=== PATIENT | male | born 1950 | race Two or more races ===

== ENCOUNTER 2018-11-06 10:47 | Emergency (ER) | payer BC ==
[2018-11-06] MEDS ORDERED: NS 0.9% 1000 ML** 1,000 ML IV ONE (11:02)
--- NOTE | 2018-11-06 11:02 | ED ---
Neurological HPI - HPI Summary HPI Summary: A 67 y/o M presents to ED c/o LUE weakness onset 0900. Patient woke up at 0500 at baseline. Associated sx: L fingers and thumb numbness; mild occipital PHOENIX; neck stiffness. Denies CP, vision changes. He says he noticed something wrong with his L thumb when he texts. He did have his blood drawn earlier today. He recently flew back to [place] from [place] yesterday, it was a 14 hour flight. He took aspirin VOICE OVER ARTIST. He notes having an MRI one month ago due to an ongoing PHOENIX for two weeks. PCP is Dr. Mercado. - History of Current Complaint Chief Complaint: EDNeurologicalDeficit Stated Complaint: LEFT ARM/HAND NUMBNESS PER PT Hx Obtained From: Patient Onset/Duration: Sudden Onset, Started hours ago, Still Present Timing: Constant Onset Severity: Moderate Current Severity: Moderate Number of Seizures: 0 Pain Intensity: 0 Pain Scale Used: 0-10 Numeric Character: Weak - LUE, Numbness/Tingling - L fingers, thumb Associated Signs and Symptoms: Positive: Headache - mild, Weakness - LUE, Numbness - L fingers/thumb, Neck Pain/Stiffness. Negative: Visual Changes, Chest Pain - Allergy/Home Medications Allergies/Adverse Reactions: Allergies Allergy/AdvReac Type Severity Reaction Status Date / Time Penicillins Allergy Unknown Unknown Verified 11/06/18 11:29 Reaction Details Home Medications: Home Medications Aspirin [Aspirin EC] 81 mg PO DAILY 11/06/18 [History Confirmed 11/06/18] PMH/Surg Hx/FS Hx/Imm Hx Previously Healthy: No History: Reports: Other Problems/Disorders - PROSTATECTOMY 09/2015 Sensory History: Denies: Hx Contacts or Glasses, Hx Hearing Aid Opthamlomology History: Denies: Hx Contacts or Glasses - Cancer History Cancer Type, Location and Year: PROSTATE CA - Surgical History Surgery Procedure, Year, and Place: 09/2015 PROSTATECTOMY, [place] Hx Anesthesia Reactions: No Infectious Disease History: No Infectious Disease History: Reports: Traveled Outside the [place] in Last 30 Days - Family History Family History: neg: anaesthesia reaction - Social History Occupation: Unemployed - OTHER Lives: With Family Alcohol Use: None Hx Substance Use: No Substance Use Type: Reports: None Hx Tobacco Use: Yes Smoking Status (MU): Former Smoker Type: Cigarettes Have You Smoked in the Last Year: No Review of Systems Eyes: Negative Negative: Chest Pain Musculoskeletal: Other - pos: neck stiffness Positive: Headache - mild, Weakness - LUE, Numbness - L fingers/thumb All Other Systems Reviewed And Are Negative: Yes Physical Exam - Summary Physical Exam Summary: Appearance: The patient is well-nourished in no acute distress and in no acute pain. Skin: The skin is warm and dry and skin color reflects adequate perfusion. HEENT: The head is normocephalic and atraumatic. The pupils are equal and reactive. The conjunctivae are clear and without drainage. Nares are patent and without drainage. Mouth reveals moist mucous membranes and the throat is without erythema and exudate. The external ears are intact. The ear canals are patent and without drainage. The tympanic membranes are intact. Neck: the neck is supple with full range of motion and non-tender. There are no carotid bruits. There is no neck vein distension. Respiratory: Chest is non-tender. Lungs are clear to auscultation and breath sounds are symmetrical and equal. Cardiovascular: Heart is regular rate and rhythm. There is no murmur or rub auscultated. There is no peripheral edema and pulses are symmetrical and equal. Abdomen: The abdomen is soft and non-tender. There are normal bowel sounds heard in all four quadrants and there is no organomegaly palpated. Musculoskeletal: There is no back tenderness noted. Extremities are non-tender with full range of motion. There is good capillary refill. There is no peripheral edema or calf tenderness elicited. Neurological: Patient is alert and oriented to person, place and time. The patient has symmetrical motor strength in all four extremities. Cranial nerves are grossly intact. Deep tendon reflexes are symmetrical and equal in all four extremities. Psychiatric: The patient has an appropriate affect and does not exhibit any anxiety or depression. Triage Information Reviewed: Yes Vital Signs On Initial Exam: Initial Vitals Temp Pulse Resp BP Pulse Ox 97.4 F 71 20 158/123 98 11/06/18 10:50 11/06/18 10:50 11/06/18 10:50 11/06/18 10:50 11/06/18 10:50 Vital Signs Reviewed: Yes - [place] Coma Scale Best Eye Response: 4 - Spontaneous Best Motor Response: 6 - Obeys Commands Best Verbal Response: 5 - Oriented Coma Scale Total: 15 Diagnostics - Vital Signs Vital Signs Temp Pulse Resp BP Pulse Ox 06/17/19 10:50 97.4 F 71 20 158/123 98 - Laboratory Result Diagrams: 11/06/18 11:18 11/06/18 11:18 Lab Statement: Any lab studies that have been ordered have been reviewed, and results considered in the medical decision making process. - Radiology CXR Radiology Interpretation Completed By: Radiologist Summary of Radiographic Findings: IMPRESSION: #. No evidence for acute intrathoracic disease. ED provider has reviewed this report. - CT BRAIN CT CT Interpretation Completed By: Radiologist Summary of CT Findings: IMPRESSION: #. No evidence for intracranial hemorrhage or CT stigmata of ischemic stroke. Negative exam. ED provider has reviewed this report. - EKG 1109 Cardiac Rate: Bradycardia - 53 bpm EKG Rhythm: Sinus Bradycardia Summary of EKG Findings: Vertical axis. No STEMI. NIH Scale - NIH Scale Level of Consciousness: Alert/Keenly Responsive Ask Patient the Month and His/Her Age: Both Correct Ask Pt to Open/Close Eyes and Youth Services Librarian/Release Non-Paretic Hand: Both Correctly Best Gaze (Only Horizontal Eye Movement): Normal Visual Field Testing: No Visual Loss Facial Paresis-Pt to Smile & Close Eyes or Grimace Symmetry: Normal/Symmetrical Motor Function - Right Arm: No Drift-Holds 10 Seconds Motor Function - Left Arm: No Drift-Holds 10 Seconds Motor Function - Right Leg: No Drift-Holds 10 Seconds Motor Function - Left Leg: No Drift-Holds 10 Seconds Limb Ataxia-Must be out of Proportion to Weakness Present: Absent Sensory (Use Pinprick to Test Arms/Legs/Trunk/Face): Normal Best Language (Describe Picture, Name Items): No Aphasia Dysarthria (Read Several Words): Normal Extinction and Inattention: No Abnormality Total Score: 0 Re-Evaluation - Re-Evaluation 1 Re-Evaluation Time: 13:57 Change: Improved Comment: Discussing results with patient and plans for discharge. He is agreeable to this. Course/Dx - Course Course Of Treatment: Mr. Costello presented with left arm numbness and weakness. His initial NIH stroke scale was 0 - 1. My initial impression was that this is likely a radicular however I cannot rule out a CVA and a code alfonso was called. Dr. Olivo came and evaluated the patient and agreed that it was likely coming from his neck. At that point the patient was improving rapidly and he recommended discharge if labs were within normal limits which they were. - Diagnoses Provider Diagnoses: Cervical radiculopathy During the Visit The Following Alert/Code Occurred: Code Shaquille - called at 10:57 - Physician Notifications Discussed Care Of Patient With: Mike Olivo - neuro Time Discussed With Above Provider: 11:11 Instructed by Provider To: MD Will See In ED - Discussing patient. Consulted again at 1150: Patient's sx are resolving, most likely nerve / musculoskeletal issue. If work-up is OK, safe for discharge. Discharge - Sign-Out/Discharge Documenting (check all that apply): Patient Departure - D/C Patient Received Moderate/Deep Sedation with Procedure: No - Discharge Plan Condition: Stable Disposition: HOME Patient Education Materials: Cervical Radiculopathy (ED) Referrals: Larry Mercado MD [Primary Care Provider] - 1 Week Additional Instructions: Please return to the ED if you experience new or worsening symptoms. Follow up with your primary care provider this week. - Billing Disposition and Condition Condition: STABLE Disposition: Home - Attestation Statements Document Initiated by Lvibe: Yes Documenting Scribe: Charu Irby Provider For Whom Lvibe is Documenting (Include Credential): Dr. Janes Chen MD Scribe Attestation: I, lv Soriaibed for Dr. Janes Chen MD on 11/06/18 at 1504. Scribe Documentation Reviewed: Yes Provider Attestation: The documentation as recorded by the Charu lacey accurately reflects the service I personally performed and the decisions made by me, Dr. Janes Chen MD Status of Scribe Document: Viewed
[2018-11-06 11:28] LABS: ABS Eosinophils 0.2 10^3/ul (0-0.6); ABS Lymphocytes 2.1 10^3/ul (1.0-4.8); ABS Monocytes 0.5 10^3/ul (0-0.8); Eosinophil % 4.2 %; Hematocrit 40 % (42-52); Hemoglobin 13.5 g/dL (14.0-18.0); Lymphocyte % 35.5 %; Mean Corpuscular HGB Conc 34 g/dL (31-36); Mean Corpuscular Hemoglobin 29 pg (27-31); Mean Corpuscular Volume 85 fL (80-94); Mean Platelet Volume 8.7 fL (7.4-10.4); Nucleated Red Blood Cells % 0.1; Platelet Count 217 10^3/uL (150-450); Red Blood Count 4.73 10^6 /uL (4.18-5.48); Red Cell Distribution Width 13 % (10-15); White Blood Count 5.8 10^3/uL (3.5-10.8)
[2018-11-06 11:41] LABS: Activated Partial Thrombo Time 36.5 seconds (26.0-38.0); INR 0.93 (0.82-1.09)
[2018-11-06 11:43] LABS: Albumin 4.1 g/dL (3.2-5.2); Albumin/Globulin Ratio 1.5 (1-3); BUN/Creatinine Ratio 14.8 (8-20); Calcium 9.2 mg/dL (8.6-10.3); EGFR Non-African American 68.6 (>60); Globulin 2.8 g/dL (2-4); HDL Cholesterol 26.1 mg/dL; Potassium 3.8 mmol/L (3.5-5.0); Total Bilirubin 0.4 mg/dL (0.2-1.0); Total Protein 6.9 g/dL (6.4-8.9)
--- NOTE | 2018-11-06 13:27 | CONS ---
NEUROLOGY CONSULTATION REPORT: DATE OF CONSULT: 11/06/18 LOCATION: He is in the emergency room, bed 4. REFERRING PROVIDER: Dr. Chen. CHIEF COMPLAINT: Left hand numbness. HISTORY OF PRESENT ILLNESS: Shania Costello is a 67-year-old right-handed man who woke up this morning at 5 o'clock and felt reasonably well. He had just returned from [facility] with a 14-hour plane ride and a drive up from [facility] to [place]. He went to have some blood work done as it was ordered routinely to check his PSA. He said there were no problems with the stick and there was no pain with the phlebotomy. He went home and he went to use his cell phone and he realized that his left thumb did not move properly. He describes it as "numb." There was no pain, tingling, but just a decreased mobility of the thumb. He felt that maybe there was some weakness in his forearm as well. He took 4 baby aspirin and presented to the emergency room. A blair alfonso was called. He notes as I evaluated him several times today in the emergency room that his mobility is much improved. It still feels a little weak. When I examined him first in the emergency room, he had some thumb extensor weakness and a little bit of left wrist extensor weakness. There was also some finger extensor weakness. There was decreased pin discrimination in the left anatomical snuffbox. There was good strength proximally including triceps, biceps, and brachioradialis. He does not notice any numbness of his face, other arm, or either leg. He had no difficulty ambulating. He has a little bit of stiffness in his neck, but no pain. He has not noticed any change in his vision and no headache. There is no prior history of cerebrovascular disease. There is no history of epilepsy. PAST MEDICAL HISTORY: Notable for prostate cancer. He had a prostatectomy in September 2015. He had a lesion removed from his bladder in 2016 as well. There is no history of hypertension or diabetes. He does not routinely take aspirin. MEDICATIONS: His only regular medication is a multivitamin. ALLERGIES: He is allergic to PENICILLIN. FAMILY HISTORY: Noncontributory. SOCIAL HISTORY: He is an ex-smoker. He drinks alcohol infrequently. REVIEW OF SYSTEMS: Negative for cardiac, pulmonary, other renal, GI, psychiatric or hematological disorders. He has not had any recent fevers. He is somewhat jet lagged and more tired than usual. PHYSICAL EXAMINATION: He is well nourished and well hydrated. Temperature 97.4 , blood pressure was initially recorded at 158/23, but subsequently 146/90. Heart rate is in the 60s and regular. Respiratory rate is 20 and oxygen saturation is 98% on room air. Heart tones are normal. Carotid pulses were intact and there were no cervical bruits. Oral mucosa is moist. Distal pulses are present. Lungs are clear bilaterally. Neurological Exam: Pupils react equally from 4 down to 2.5 mm symmetrically. Funduscopic exam is normal bilaterally. Visual azcarias are full to confrontation. Facial musculature and facial sensation are intact and symmetric to light touch and pin. Palate and tongue appear normal, palate rises symmetrically. There is no dysarthria. Neck range of motion is normal. Motor exam reveals normal muscle tone and strength proximally and distally in the right arm and both legs. He has normal strength in the left arm, other than some left thumb extensor weakness, which earlier in the evaluation also included some wrist extensor and finger extensor weakness, but that appears to have resolved. There is still diminished pin discrimination in the left anatomical snuffbox. The rest of the sensory exam is intact in all limbs. Reflexes are symmetric in the limbs as well and plantar responses are flexor bilaterally. Reflexes are intact at brachioradialis, biceps, and triceps in the upper extremities symmetrically. Lnqctr-cz-[id number] maneuver is normal bilaterally. Guqx-qy-qume maneuver is normal bilaterally. There is no rest or action tremor. He is alert and oriented and an excellent detailed historian. Memory is intact and language is fluent. He has adequate attention, concentration, and fund of knowledge. DIAGNOSTIC STUDIES/LAB DATA: Laboratory data includes a CT of the brain interpreted as normal. I reviewed the images and I agree. Chest x-ray is interpreted as normal as well. A 12-lead EKG reveals some sinus bradycardia and right axis deviation. There is minimal ST elevation in the anterior leads. Additional laboratory data is notable for normal CBC, other than a borderline low hemoglobin at 13.5. INR and PTT are within normal limits. Chemistry profile is normal, other than a borderline glucose of 115. Cholesterol is 155 and LDL 97. IMPRESSION: Impression is that of a partial left radial nerve palsy. He had prolonged travel over several days and he may not have noticed weakness in his hand when he first woke up this morning. Alternatively, he may have had some tourniquet paralysis from the blood draw. His symptoms are improving and are restricted to a radial nerve distribution. I do not see evidence of a cerebrovascular event. I think he can probably be discharged home as long as his symptoms continue to resolve. If he develops new or worsened symptoms, then he should be reevaluated. I discussed my impression with Dr. Moreno. [id number]/[facility] #: [id number] [facility] CENTERTeodora
[2018-11-06 14:08] VITALS: BP 150/89
== END 2018-11-06 14:07 | disposition home or self-care (01) ==
LOC: ED 10:47
DX: M54.12 Radiculopathy, cervical region (principal); Z79.82 Long term (current) use of aspirin; Z87.891 Personal history of nicotine dependence
CPT/HCPCS: 36415; 70450; 71045; 80053; 80061; 83605; 84484; 85025; 85610; 85730; 86850; 86900; 86901; 93005; 96360; 96361; 99284

== ENCOUNTER 2018-12-03 14:27 | Emergency (ER) | payer BC ==
--- OUTSIDE RECORDS SUMMARY | 2018-12-03 14:37 | XMS REPORT | Continuity of Care Document ---
:1950 External Reference #:[id number] Author Name Jeanette Dorsey O.D. Address [address] [facility] [place] [address] Care Team Providers Name Role Phone Larry Mercado M.D. 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 20mg Capsules Sildenafil Citrate Jean Greenfield M.D. 100mg Tablets Multi Vitamin Daily Unknown Tablets History Medications Prednisolone Acetate 1 drop left 1units H20.012 Jeanette Dorsey, 2016 - 1% eye 4 times O.D. 07/19/2016 Suspension daily Procedures Date Code Description Status 06/25/2016 50733 New Patient Intermediate Exam Completed Encounters Type Date Location Provider Dx Diagnosis Office Visit 07/06/2016 Jeanette Hale, H20.012 Primary 8:15a , kristen Fylnn iridocyclitis, left eye Office Visit 06/29/2016 Jeanette Hale, H20.012 Primary 8:15a kristen HUGHES O.D. iridocyclitis, left eye Office Visit 06/26/2016 Genesis Hale, H20.012 Primary 10:00a kristen HUGHES O.D. iridocyclitis, left eye Plan of Treatment 11/16/2018 - Jeanette Dorsey O.D.H43.811 Vitreous degeneration, right eyeComments:Smoking can increase the risk of developing or worsening any eye related disease, as well as affect your overall health. If you are a smoker, we strongly recommend that you quit.If you are not a smoker, we strongly recommend that you do not start. 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 If you have any changes in your floaters or flashing lights, please contact this office.Follow up:4 WEEKS DFE You can expect to have your eyes dilated at your next visit. If Dr. Dorsey orders anyadditional testing, it may require extra time. We recommend that you bring sunglasses, as dilation drops often make you light sensitive until they wear off. We always recommend you bring someone to drive you home if you are uncomfortable driving with your eyes dilated. If you have any questions beforeyour next visit, feel free to call our office at .
[2018-12-03] MEDS ORDERED: Ketorolac INJ* 30 MG/ML 1 ML VIAL IM ONE (17:33)
[2018-12-03] MEDS ORDERED: tiZANidine TAB* 2 MG PO ONE (17:35)
--- NOTE | 2018-12-03 18:11 | ED ---
Back Pain - HPI Summary HPI Summary: The patient is a 67 y/o M presenting to [facility] accompanied by with a chief complaint of sudden onset mid to low back pain starting on 11/30/18. He reports that there was not any trauma to the back, but he started experiencing the pain while walking outside. During the first day of the pain, he attempted to use Soma pills; the second and third day of the pain he had been using Icy-Hot packs , as well as Lidocaine patches on the area of pain with last one placed at 0900 today 12/03. The pain is the worst it's been today with a current severity of 8/ 10. There is numbness at the site of the pain, but the numbness does not radiate. He denies lower extremity pain, abd pain, incontinence of urine or stool, weakness in either lower extremity, or fever. The pain is aggravated by position and lifting the right leg when lying down (not left leg). PCP is Dr. Mercado, who is not aware of the patient's back pain. Hx of prostatectomy in 2016 secondary to prostate CA (no recent changes as of three weeks ago, has seen Dr. Webb with surgery in [place]). No hx of herniated discs or back problems. Former cigarette smoker, no EtOH, no substance use. Vital signs in room: HR 66 bpm, BP 113/66, O2 97%. Home Medications Medication Instructions Recorded Confirmed Type Multivitamin [Multivitamins] 1 cap PO DAILY 02/19/16 11/06/18 History Aspirin [Aspirin EC] 81 mg PO DAILY 11/06/18 11/06/18 History HYDROcodone/ACETAMIN 5-325 MG* 2 tab PO Q6H PRN #20 tab MDD 8 12/03/18 Rx [[place] 5-325 TAB*] Lidocaine PATCH 5%* [Lidoderm 5% 2 patch TRANSDERM DAILY #30 patch 12/03/18 Rx Patch*] - History of Current Complaint Chief Complaint: EDBackInjuryPain Stated Complaint: "BACK PAIN PER PT" Hx Obtained From: Patient, Family/[employer] - Onset/Duration: Sudden Onset, Lasting Days - starting 11/30/18, Still Present, Worse Since - this morning Onset/Duration: Started Days Ago - three (11/30), Atraumatic, Still Present Timing: Lasting Days - three Back Pain Location: Is Discrete @ - mid to low back Severity Initially: Moderate Severity Currently: Severe Pain Intensity: 8 Pain Scale Used: 0-10 Numeric Character: Sharp Aggravating Symptom(s): Movement - especially lifting right leg Alleviating Symptom(s): Rest Associated Signs And Symptoms: Positive: Numbness - at site of back pain (doesn' t radiate), Other - NEGATIVE: leg pain or weakness. Negative: Fever, Abdominal Pain, Bladder Incontinence, Bowel Incontinence - Allergies/Home Medications Allergies/Adverse Reactions: Allergies Allergy/AdvReac Type Severity Reaction Status Date / Time Penicillins Allergy Unknown Unknown Verified 12/03/18 14:33 Reaction Details PMH/Surg Hx/FS Hx/Imm Hx Endocrine/Hematology History: Denies: Hx Diabetes Cardiovascular History: Denies: Hx Hypertension History: Reports: Other Problems/Disorders - PROSTATECTOMY 09/2015 Sensory History: Denies: Hx Contacts or Glasses, Hx Hearing Aid Opthamlomology History: Denies: Hx Contacts or Glasses - Cancer History Cancer Type, Location and Year: PROSTATE CA - Surgical History Surgery Procedure, Year, and Place: 09/2015 PROSTATECTOMY, FOLSOM Hx Anesthesia Reactions: No Infectious Disease History: No Infectious Disease History: Reports: Traveled Outside the [place] in Last 30 Days - [place] - Family History Family History: neg: anaesthesia reaction - Social History Alcohol Use: None Alcohol Amount: beer, red wine once in a while Hx Substance Use: No Substance Use Type: Reports: None Hx Tobacco Use: Yes Smoking Status (MU): Former Smoker Type: Cigarettes Have You Smoked in the Last Year: No Review of Systems Negative: Fever Positive: Other - NEGATIVE: incontinence of BM. Negative: Abdominal Pain Negative: incontinence Positive: Other - back pain in the mid to lower back; NEGATIVE: lower extremity pain. Negative: Edema Positive: Numbness - at site of back pain but not radiating. Negative: Weakness - in BLE All Other Systems Reviewed And Are Negative: Yes Physical Exam - Summary Physical Exam Summary: Appearance: Ill-appearing, moderate pain distress, well-nourished Skin: Warm, color reflects adequate perfusion, dry Head: Normal Head/Face inspection, atraumatic Eyes: Conjunctiva clear ENT: Normal inspection Neck: Supple, no nodes, no JVD Respiratory: Lungs clear, normal breath sounds, no respiratory distress Cardio: RRR, No murmur, pulses normal, brisk capillary refill Abdomen: Soft, nontender Bowel sounds: Present Musculoskeletal: Tenderness across the lumbar spine, Dorsiflexion and plantarflexion strengths intact, SLR positive on right with sensation intact bilaterally, 2+ and 1+ Patellar reflexes diminished on right, Ankle reflexes difficult to assess because patient is unable to position properly due to pain, Babinski reflexes intact bilaterally, ROM intact, no calf tenderness, no edema. Psychological: Normal Neuro: Alert, muscle tone normal, no focal deficit Triage Information Reviewed: Yes Vital Signs On Initial Exam: Initial Vitals Temp Pulse Resp BP Pulse Ox 97.6 F 64 14 131/84 96 12/03/18 14:29 12/03/18 14:29 12/03/18 14:29 12/03/18 14:29 12/03/18 14:29 Vital Signs Reviewed: Yes Diagnostics - Vital Signs Vital Signs Temp Pulse Resp BP Pulse Ox 12/03/18 17:07 68 113/66 99 12/03/18 17:00 55 98 12/03/18 16:37 55 115/65 97 12/03/18 16:07 59 126/66 96 12/03/18 14:29 97.6 F 64 14 131/84 96 - Laboratory Lab Statement: Any lab studies that have been ordered have been reviewed, and results considered in the medical decision making process. - Radiology Lumbar Spine MRI Radiology Interpretation Completed By: Radiologist Summary of Radiographic Findings: Lumbar Spine MRI Impression: 1. No acute abnormality involving the lumbar spine. 2. Central canal is widely patent throughout. ED physician has reviewed this report. Re-Evaluation - Re-Evaluation First Eval Re-Evaluation Time: 22:00 Change: Improved Comment: The patient's pain has significantly improved. He is able to stand up and move. We discussed findings and discharge home. Back Pain Course/Dx - Course Course Of Treatment: Patient's medications reviewed. Nurses' notes reviewed. Allergies reviewed. The patient is a 67 y/o M presenting to [facility] with a chief complaint of sudden onset mid to low back pain starting on 11/30/18 with worsening since, despite interventional efforts of using Soma pills, Icy-Hot packs, and Lidocaine patches. He denies fever, abd pain, incontinence of urine or stool, or lower extremity pain or weakness. Hx of prostatectomy in 2016 secondary to prostate CA. Upon physical exam, the patient exhibits tenderness across the lumbar spine, dorsiflexion and plantarflexion strengths intact, SLR positive on right with sensation intact bilaterally, 2+ and 1+ patellar reflexes diminished on right, ankle reflexes difficult to assess because patient is unable to position properly due to pain, Babinski reflexes intact bilaterally, no calf tenderness, no edema. UA is negative for infection or kidney dysfunction. Lumbar Spine MRI Impression: 1. No acute abnormality involving the lumbar spine. 2. Central canal is widely patent throughout. In the ED course, the patient was administered Zanaflex, Lidocaine patch, and Toradol. Since the patient's pain has improved, he is able to be discharged home. He is given a prescription for [place] and Lidoderm. He will follow up with PCP Dr. Mercado in 2 days. He and his agree with this plan. Discharge - Sign-Out/Discharge Documenting (check all that apply): Patient Departure - Patient will be discharged home. Patient Received Moderate/Deep Sedation with Procedure: No - Discharge Plan Condition: Stable Disposition: HOME Prescriptions: HYDROcodone/ACETAMIN 5-325 MG* [[place] 5-325 TAB*] 2 tab PO Q6H PRN #20 tab MDD 8 PRN Reason: Severe Pain Lidocaine PATCH 5%* [Lidoderm 5% Patch*] 2 patch TRANSDERM DAILY #30 patch Patient Education Materials: Acute Low Back Pain (ED) Referrals: Larry Mercado MD [Primary Care Provider] - 2 Days Additional Instructions: We have given you a copy of your MRI done today. We applied a Lidoderm patch which you should remove at 0700am We also gave you ketorolac 30mg IM, Tizanidine 2mg orally as a muscle relaxant. We have prescribed the Lidoderm patches and you place two patches across the painful area and remove after twelve hours. Please return to the ER if you have any new or worsening symptoms. - Billing Disposition and Condition Condition: STABLE Disposition: Home - Attestation Statements Document Initiated by Scribe: Yes Documenting Scribe: Marilyn Vitale Provider For Whom Tom is Documenting (Include Credential): Dr. Thelma Zheng MD Scribe Attestation: Marilyn Marina, scribed for Dr. Thelma Zheng MD on 12/04/18 at 0001. Status of Scribe Document: Ready
[2018-12-03] MEDS ORDERED: Lidocaine PATCH 5%* 1 PATCH TRANSDERM ONE (19:00)
[2018-12-03 20:14] LABS: Urine Appearance Cloudy; Urine Bilirubin Negative (Negative); Urine Blood Negative (Negative); Urine Color Yellow; Urine Glucose Negative (Negative); Urine Ketones Negative (Negative); Urine Nitrite Negative (Negative); Urine Protein Negative (Negative); Urine Specific Gravity 1.011 (1.010-1.030); Urine Urobilinogen Negative (Negative)
[2018-12-03] MEDS ORDERED: Lidocaine Patch REMOVE* 1 NOTE MISC SCH (21:00)
[2018-12-03 22:19] VITALS: BP 140/79
== END 2018-12-03 22:14 | disposition home or self-care (01) ==
LOC: ED 14:27
DX: M54.5 Low back pain (principal); Z79.82 Long term (current) use of aspirin; Z79.899 Other long term (current) drug therapy; Z88.0 Allergy status to penicillin; Z87.891 Personal history of nicotine dependence
CPT/HCPCS: 72148; 81003; 96372; 99283; A9270-GY; J1885